=== PATIENT | female | born 1975 | race Caucasian/White ===

== ENCOUNTER 2017-02-10 14:10 | Emergency (ER) | payer MEDICAID ==
[~2017-02-10] VITALS: Ht 165.1 cm; Wt 69.6 kg
[2017-02-10] MEDS ORDERED: SODIUM CHLORIDE FLUSH 10ML SYR IVF ONE (15:30)
[2017-02-10] MEDS ORDERED: SODIUM CHLORIDE 0.9% 1,000ML IVBOLUS ONE (15:30)
[2017-02-10 15:36] LABS: ASPARTATE AMINO TRANSFERASE 11 U/L (15-37); BLOOD UREA NITROGEN 13 mg/dL (7-18)
[2017-02-10 16:23] VITALS: BP 123/77
[2017-02-10] MEDS ORDERED: CIPROFLOXACIN 500 MG TABLET PO ONE (18:00)
[2017-02-10] MEDS ORDERED: metroNIDAZOLE 500 MG TABLET PO ONE (18:00)
[2017-02-10] MEDS ORDERED: CIPROFLOXACIN 500 MG TABLET ONE (18:02)
[2017-02-10] MEDS ORDERED: metroNIDAZOLE 500 MG TABLET ONE (18:02)
== END 2017-02-10 18:28 | disposition home or self-care (01) ==
LOC: ED 15:38
DX: K52.9 Noninfective gastroenteritis and colitis, unspecified (principal); Z90.710 Acquired absence of both cervix and uterus; Z98.890 Other specified postprocedural states; F17.200 Nicotine dependence, unspecified, uncomplicated
CPT/HCPCS: 36415; 74177; 80053; 81003; 83690; 85025; 96360; 96361; 99285; J7030